=== PATIENT | female | born 1935 | race Caucasian/White ===

== ENCOUNTER 2024-01-10 08:11 | Outpatient (CLI) | payer OTHER ==
[~2024-01-10 08:11] MED LIST: CIPRO500 MG PO; INTESTINEX1 CA1 PO; MIRALAX510 GM PO; PERCOCET 5/321 UDTAB PO; RECTICARE30 GM TP
== END 2024-01-10 08:22 | disposition home or self-care (01) ==
LOC: TOM 08:11
DX: R19.4 Change in bowel habit (principal); Z85.038 Personal history of other malignant neoplasm of large intestine; R63.4 Abnormal weight loss